=== PATIENT | female | born 1975 | race Caucasian/White ===

== ENCOUNTER 2017-06-30 05:00 | Emergency (ER) | payer SELFPAY ==
[~2017-06-30] VITALS: Ht 157.5 cm; Wt 63.0 kg
[2017-06-30 07:38] LABS: BASOPHILS % 0.7 % (0.0-2.0); EOSINOPHILS % 0.8 % (0.0-5.0); HEMATOCRIT. 30.8 % (36.0-48.0); HEMOGLOBIN. 10.5 g/dL (12.0-16.0); LYMPHOCYTES % 9.7 % (20.0-50.0); MEAN CORPUSCULAR HEMOGLOBIN 33.7 pg (28.0-32.0); MEAN CORPUSCULAR VOLUME 99.1 fL (81.0-99.0); MEAN PLATELET VOLUME 10.1 fl (7.4-10.4); MONOCYTES % 3.9 % (2.0-8.0); NEUTROPHILS % 84.9 % (40.0-76.0); PLATELET 167 x1000/uL (130-400); RED BLOOD CELL COUNT 3.11 mill/uL (4.2-5.4)
[2017-06-30 07:47] LABS: PROTHROMBIN TIME 10.3 sec
[2017-06-30] MEDS ORDERED: ACETAMINOPHEN WITH CODEINE 300/30MG TABLET PO ONE (08:15)
[2017-06-30 08:51] VITALS: BP 164/79
[2017-07-03] MEDS ORDERED: CLON0.2T PO (12:58)
[2017-07-03] MEDS ORDERED: LEVVL SQ (14:36)
== END 2017-06-30 08:50 | disposition home or self-care (01) ==
LOC: ER 05:00 → EDBD 05:00 → ER 08:50
DX: R04.0 Epistaxis (principal); R51 Headache; I13.2 Hypertensive heart and chronic kidney disease with heart failure and with stage 5 chronic kidney disease, or end stage renal disease; N18.6 End stage renal disease; I50.9 Heart failure, unspecified; Z99.2 Dependence on renal dialysis
CPT/HCPCS: 30901; 36415; 80048; 85025; 85610; 99284; Z7610

== ENCOUNTER 2017-07-01 09:12 | Emergency (ER) | payer SELFPAY ==
[~2017-07-01] VITALS: Ht 157.5 cm; Wt 64.0 kg
[2017-07-01] MEDS ORDERED: TRAMADOL 50MG TABLET PO ONE (12:00)
[2017-07-01] MEDS ORDERED: ONDANSETRON 4MG ODT PO ONE (12:00)
[2017-07-01 13:00] LABS: HEMATOCRIT 31.4 % (36.0-48.0); HEMOGLOBIN 10.4 g/dL (12.0-16.0)
[2017-07-01] MEDS ORDERED: CLONIDINE 0.2MG TABLET PO ONE (14:45)
[2017-07-01 18:04] VITALS: BP 181/83
[2017-07-03] MEDS ORDERED: CLON0.2T PO (12:58)
[2017-07-03] MEDS ORDERED: LEVVL SQ (14:36)
== END 2017-07-01 18:30 | disposition home or self-care (01) ==
LOC: ER 10:39 → CANBEDREQ 15:54 → ER 18:30
DX: R04.0 Epistaxis (principal); I12.0 Hypertensive chronic kidney disease with stage 5 chronic kidney disease or end stage renal disease; E11.22 Type 2 diabetes mellitus with diabetic chronic kidney disease; N18.6 End stage renal disease; Z99.2 Dependence on renal dialysis; Z79.4 Long term (current) use of insulin; Z79.84 Long term (current) use of oral hypoglycemic drugs
CPT/HCPCS: 30901; 36415; 85014; 85018; 99284; Q0162; Z7610

== ENCOUNTER 2025-10-03 14:37 | Emergency (ER) | payer OTHER, MEDICAID ==
[~2025-10-03] VITALS: Ht 149.9 cm; Wt 61.0 kg
[~2025-10-03 14:37] MED LIST: CLON0.2T PO; LEVVL SQ
[2025-10-03 14:40] VITALS: O2SAT 100
[2025-10-03 15:02] VITALS: BP 127/50; PULSE 97; RESP 18; TEMP 37.1; O2SAT 86
== END 2025-10-03 19:02 | disposition left against medical advice (07) ==
LOC: ER 14:37
DX: R50.9 Fever, unspecified (principal)
CPT/HCPCS: 99281